=== PATIENT | male | born 1970 | race American Indian/Alaskan Native ===

== ENCOUNTER 2016-11-03 17:35 | Emergency (ER) | payer BC, MEDICAID ==
--- NOTE | 2016-11-03 18:15 | EDM.PDOC ---
ED HPI GENERAL MEDICAL PROBLEM - General Chief Complaint: Chest Pain Stated Complaint: CHEST PAIN Time Seen by Provider: 11/03/16 17:51 Source of Information: Reports: Patient History Limitations: Reports: No limitations - History of Present Illness INITIAL COMMENTS - FREE TEXT/NARRATIVE: 46-year-old male has been having chest pain for the past 3 days, seems to be positional and hurts with of breath but also worse with activity. Some shortness of breath with the pain. At times the pain is brief and others it lasts until he rests. No nausea or vomiting. No fever, cough, abdominal pain. The pain does radiate into the right shoulder at times. He has no previous cardiac history or evaluation but does have a stress test scheduled in one week. He was briefly evaluated by his primary physician 3 days ago for a general checkup when he mentioned the chest pain starting so the stress test was scheduled. Onset: other (3 days ago) Severity: mild Worsens with: Reports: Breathing, Other (Activity) Associated Symptoms: Reports: chest pain, shortness of breath. Denies: cough, diaphoresis, fever/chills, headaches, nausea/vomiting, weakness Chest Pain Score (Numeric/FACES): 7 - Related Data Allergies Allergy/AdvReac Type Severity Reaction Status Date / Time No Known Allergies Allergy Verified 11/03/16 17:47 Home Meds: Home Meds Acetaminophen [Tylenol Extra Strength] 500 mg PO TID PRN 10/31/16 [History] Hydrocodone/Acetaminophen [[place] 10-325 Tablet] 1 tab PO Q4H 10/31/16 [History] Ibuprofen [Motrin] 600 mg PO Q6H PRN 10/31/16 [History] Triamcinolone Acetonide [Triamcinolone Acetonide 0.1% Oint] 1 applic TOP BID [History] Zolpidem Tartrate [Ambien] 10 mg PO BEDTIME PRN 10/31/16 [History] traMADol [Ultram] 50 mg PO Q6H PRN 10/31/16 [History] Aspirin [Halfprin] 1 tab PO DAILY 11/03/16 [History] Past Medical History Gastrointestinal History: Reports: PUD Musculoskeletal History: Reports: Back pain, chronic, Fracture Social & Family History - Tobacco Use Smoking Status *Q: Heavy Tobacco Smoker Years of Tobacco use: 39 Packs/Tins Daily: 1 - Recreational Drug Use Recreational Drug Use: No ED ROS GENERAL - Review of Systems Review Of Systems: See Below Constitutional: Denies: fever, chills, malaise, decreased appetite HEENT: Reports: No symptoms Respiratory: Reports: Shortness of Breath, Pleuritic Chest Pain. Denies: Cough Cardiovascular: Reports: Chest pain. Denies: Lightheadedness, Palpitations GI/Abdominal: Denies: Abdominal pain, Nausea, Vomiting : Reports: no symptoms Musculoskeletal: Reports: back pain (Chronic and stable) Skin: Reports: no symptoms Neurological: Denies: Dizziness, Headache, Syncope Psychiatric: Reports: No symptoms ED EXAM, GENERAL - Physical Exam Exam: See Below Exam Limited By: No limitations General Appearance: alert, no apparent distress Eye Exam: bilateral eye: normal inspection Respiratory/Chest: no respiratory distress, lungs clear, other (Some increased pain with lateral compression of the left chest was felt, reproducing the same discomfort) Cardiovascular: regular rate, rhythm. No: extra beats GI/Abdominal: soft, non tender Extremities: normal inspection. No: pedal edema Neurological: alert, oriented Psychiatric: normal affect, normal mood Skin Exam: Warm, Dry EKG INTERPRETATION Rhythm: NSR Course - Vital Signs Last Recorded V/S: Last Vital Signs Temp 97.3 F 11/03/16 17:45 Pulse 74 11/03/16 18:47 Resp 18 11/03/16 18:47 BP 101/68 11/03/16 18:47 Pulse Ox 99 11/03/16 18:47 - Orders/Labs/Meds Orders: Active Orders 24 hr Category Date Time Status EKG Documentation Completion [RC] ASDIRECTED Care 11/03/16 18:03 Active Chest 2V [CR] Routine Exams 11/03/16 18:03 Taken EKG 12 Lead [EK] Routine Ther 11/03/16 18:03 Ordered Labs: Laboratory Tests 11/03/16 11/03/16 11/03/16 Range/Units 18:14 18:14 18:14 WBC 11.1 H (4.5-11.0) K/uL RBC 4.70 (4.30-5.90) M/uL Hgb 14.7 (12.0-15.0) g/dL Hct 43.0 (40.0-54.0) % MCV 92 (80-98) fL MCH 31 (27-31) pg MCHC 34 (32-36) % Plt Count 250 (150-400) K/uL Neut % (Auto) 56 (36-66) % Lymph % (Auto) 35 (24-44) % [place] % (Auto) 8 H (2-6) % Eos % (Auto) 1 L (2-4) % Baso % (Auto) 1 (0-1) % D-Dimer, Quantitative < 100 (0.0-400.0) ng/mL Sodium 141 (140-148) mmol/L Potassium 4.0 (3.6-5.2) mmol/L Chloride 105 (100-108) mmol/L Carbon Dioxide 28 (21-32) mmol/L Anion Gap 7.9 (5.0-14.0) mmol/L BUN 10 (7-18) mg/dL Creatinine 1.2 (0.8-1.3) mg/dL Est Cr Clr Drug Dosing 69.33 mL/min Estimated GFR (MDRD) > 60 (>60) Glucose 124 H (74-106) mg/dL Calcium 8.2 L (8.5-10.1) mg/dL Total Bilirubin 0.5 (0.2-1.0) mg/dL AST 12 L (15-37) U/L ALT 12 (12-78) U/L Alkaline Phosphatase 82 (46-116) U/L Troponin I < 0.017 (0.000-0.056) ng/mL Total Protein 6.6 (6.4-8.2) g/dL Albumin 3.2 L (3.4-5.0) g/dL Globulin 3.4 (2.3-3.5) g/dL Albumin/Globulin Ratio 0.9 L (1.2-2.2) Lipase 157 (73-393) U/L - Re-Assessments/Exams Free Text/Narrative Re-Assessment/Exam: 11/03/16 18:15 EKG was done which showed no acute changes. Patient was in a normal sinus rhythm. CBC, CMP, lipase, troponin and d-dimer were obtained. 11/03/16 18:55 Labs were all negative, troponin negative, d-dimer less than 100. Chest x-ray showed possible early emphysema but no acute findings. Discuss with the patient possibly setting up his stress test earlier but he wanted to take work this week if possible and keep the appointment as scheduled. Copies of all the labs and EKG were given to the patient in case he needs to recheck earlier. Departure - Departure Time of Disposition: 19:08 Disposition: Home, Self-Care 01 Condition: good Clinical Impression: Atypical chest pain, Pleurisy Instructions: Nonspecific Chest Pain, [id number] Referrals: PCP,None [Primary Care Provider] - Forms: ED Department Discharge Care Plan Goals: Continue your regular activity and medications. Stress test as scheduled, or recheck sooner if worsening or concerns. - My Orders Last 24 Hours: My Active Orders 11/03/16 18:03 EKG Documentation Completion [RC] ASDIRECTED Chest 2V [CR] Routine EKG 12 Lead [EK] Routine - Assessment/Plan Last 24 Hours: My Active Orders 11/03/16 18:03 EKG Documentation Completion [RC] ASDIRECTED Chest 2V [CR] Routine EKG 12 Lead [EK] Routine
[2016-11-03 18:49] VITALS: BP 101/68
--- NOTE | 2016-11-04 11:04 | CR ---
Chest 2V HISTORY: No Clinical Info FINDINGS: Heart size within normal limits. Pulmonary vasculature within normal limits. No evidence f or focal consolidation or cardiopulmonary process. Pulmonary hyperinflation. Emphysematous change. IMPRESSION: No radiographic evidence for acute cardiopulmonary process.
== END 2016-11-03 19:08 | disposition home or self-care (01) ==
LOC: JP.ED 17:35
DX: R07.89 Other chest pain (principal); R09.1 Pleurisy; F17.210 Nicotine dependence, cigarettes, uncomplicated; Z79.899 Other long term (current) drug therapy
CPT/HCPCS: 36415; 71020; 71020-26; 80053; 83690; 84484; 85025; 85379; 93005; 99285-25

== ENCOUNTER 2021-02-21 19:38 | Emergency (ER) | payer BC, MEDICAID ==
[2021-02-21 20:44] VITALS: BP 136/76; PULSE 87
--- NOTE | 2021-02-21 21:24 | EDM.PDOC ---
ED HPI GENERAL MEDICAL PROBLEM - General Chief Complaint: Skin Complaint Stated Complaint: ALL OVER BODY RASH Time Seen by Provider: 02/21/21 21:22 Source of Information: Reports: Patient History Limitations: Reports: No Limitations - History of Present Illness INITIAL COMMENTS - FREE TEXT/NARRATIVE: Shankar is a 50-year-old male presenting to the ED for evaluation of a rash that is on his distal upper and lower extremities that is been in place for about 2 weeks. Patient has tried Benadryl and [id number] topical ointments without improvement. The rash is quite itchy to the point that he is excoriated his left lower limb causing a secondary cellulitis. The rashes small erythematous papules that sometimes develop pustules when the patient tries to compress them. It seems to be predominantly on the distal extremities. There is no rash on the face, chest, back, abdomen, groin. It is not limited to sun exposed skin as he normally wears pants and it is on his unintended legs. Patient denies any fever, chills, cough or or throat, headache or body aches, nausea, vomiting, or diarrhea. bilateral legs Pain Score (Numeric/FACES): 8 - Related Data Allergies Allergy/AdvReac Type Severity Reaction Status Date / Time No Known Allergies Allergy Verified 02/21/21 21:19 Home Meds: Home Meds Acetaminophen [Tylenol Extra Strength] 500 mg PO TID PRN 10/31/16 [History] Ibuprofen [Motrin] 600 mg PO Q6H PRN 10/31/16 [History] Aspirin [Halfprin] 1 tab PO DAILY 11/03/16 [History] hydrOXYzine HCL [Atarax] 25 mg PO Q6H PRN #28 tab 02/21/21 [Rx] Past Medical History Gastrointestinal History: Reports: PUD Musculoskeletal History: Reports: Back Pain, Chronic, Fracture ED ROS GENERAL - Review of Systems Review Of Systems: See Below Constitutional: Reports: No Symptoms HEENT: Reports: No Symptoms Respiratory: Reports: No Symptoms Cardiovascular: Reports: No Symptoms Endocrine: Reports: No Symptoms GI/Abdominal: Reports: No Symptoms : Reports: No Symptoms Musculoskeletal: Reports: No Symptoms Skin: Reports: Pruritis, Rash (Pruritic papular rash on the distal upper and lower extremities.), Other (Creation of various regions on the left lower leg with erythema, edema, and tenderness now.) Neurological: Reports: No Symptoms Psychiatric: Reports: No Symptoms Hematologic/Lymphatic: Reports: No Symptoms Immunologic: Reports: No Symptoms ED EXAM, SKIN/RASH Exam: See Below Exam Limited By: No Limitations General Appearance: Alert, No Apparent Distress Eye Exam: Bilateral Eye: PERRL Throat/Mouth: Normal Inspection, Normal Oropharynx Head: Normocephalic Cardiovascular: Normal Peripheral Pulses Skin: Erythema (Erythema and edema of the left lower anterior leg with numerous excoriations from scratching. This is consistent with an acute cellulitis.), Rash (Red papular rash on the distal upper and lower extremities. This feels dry like sandpaper. It is quite pruritic.) Location, Skin: Upper Extremity, Right, Upper Extremity, Left, Lower Extremity, Right, Lower Extremity, Left Characteristics: Papular Associated features: Warmth (Warmth, tenderness, swelling, and induration in the left anterior lower leg where there are numerous excoriations. This is worrisome for an acute cellulitis.), Tenderness, Swelling, Induration Course - Vital Signs Last Recorded V/S: Last Vital Signs Temp 36.4 C 02/21/21 21:22 Pulse 87 02/21/21 21:22 Resp 16 02/21/21 21:22 BP 136/76 02/21/21 21:22 Pulse Ox 99 02/21/21 21:22 - Orders/Labs/Meds Labs: Laboratory Tests 02/21/21 02/21/21 Range/Units 21:51 21:51 WBC 11.0 (4.5-11.0) K/uL RBC 4.54 (4.30-5.90) M/uL Hgb 14.3 (12.0-15.0) g/dL Hct 42.8 (40.0-54.0) % MCV 94 (80-98) fL MCH 32 H (27-31) pg MCHC 33 (32-36) % Plt Count 295 (150-400) K/uL Neut % (Auto) 60.1 (36-66) % Lymph % (Auto) 25.4 (24-44) % [place] % (Auto) 9.3 H (2-6) % Eos % (Auto) 4.7 H (2-4) % Baso % (Auto) 0.5 (0-1) % C-Reactive Protein < 0.05 (0.0-0.3) mg/dL Meds: Medications Discontinued Medications Generic Name Dose Route Start Last Admin Trade Name Jamariq PRN Reason Stop Dose Admin Hydroxyzine HCl 25 mg 02/21/21 22:25 Hydroxyzine Hcl 25 Mg Tab PO 02/21/21 22:26 ONETIME ONE - Re-Assessments/Exams Free Text/Narrative Re-Assessment/Exam: 02/21/21 22:39 Labs were obtained showing a normal CBC and CRP. The rashes consistent with an atopic dermatitis or xeroderma. For this we will put the patient on a prednisone taper over 10 days. He is complaining of significant pruritus and has excoriated his left lower leg. We will put him on hydroxyzine 25 mg every 6 hours as needed for itching. Finally, he appears to have developed a secondary cellulitis in the left lower extremity due to the excoriation so we will put him on cephalexin 500 mg 3 times daily for 7 days to treat the cellulitis. At this time, the patient is suitable for discharge home in satisfactory condition. Indications to follow-up with his primary doc or return to the ED were discussed. Departure - Departure Time of Disposition: 22:22 Disposition: Home, Self-Care 01 Clinical Impression: Cellulitis Qualifiers: Site of cellulitis: extremity Site of cellulitis of extremity: lower extremity Laterality: left Qualified Code(s): L03.116 - Cellulitis of left lower limb Atopic dermatitis Qualifiers: Atopic dermatitis type: unspecified Qualified Code(s): L20.9 - Atopic dermatitis, unspecified - Discharge Information Prescriptions: hydrOXYzine HCL [Atarax] 25 mg PO Q6H PRN #28 tab PRN Reason: Itching Instructions: Cellulitis, Adult, Atopic Dermatitis Referrals: Ez Méndez MD [Primary Care Provider] - Forms: ED Department Discharge Care Plan Goals: Your left leg now has a skin infection due to the scratching. We are going to put you on cephalexin 500 mg 3 times a day for 7 days to treat this. This has been sent out to the [facility] machine. Your rash is due to a condition called atopic dermatitis which is an allergy type reaction which is why it itches. I am prescribing you hydroxyzine for the itching. This is not available in the [facility] machine so we will give you the first dose here and I have given you a printed prescription to fill in the morning for the remainder of the course. I also am going to put you on a 10-day steroid taper to help calm down the immune system causing the itch and rash. This is available in the [facility] machine for you to start tonight. Sepsis Event Note (ED) - Evaluation Sepsis Screening Result: No Definite Risk - Focused Exam Vital Signs: Vital Signs Temp Pulse Resp BP Pulse Ox 02/21/21 21:22 36.4 C 87 16 136/76 99 02/21/21 20:43 36.4 C 87 16 136/76 99 - Problem List & Annotations (1) Cellulitis SNOMED Code(s): 092482273 Code(s): L03.90 - CELLULITIS, UNSPECIFIED Status: Acute Priority: Low Current Visit: Yes Qualifiers: Site of cellulitis: extremity Site of cellulitis of extremity: lower extremity Laterality: left Qualified Code(s): L03.116 - Cellulitis of left lower limb (2) Atopic dermatitis SNOMED Code(s): 12558267 Code(s): L20.9 - ATOPIC DERMATITIS, UNSPECIFIED Status: Acute Priority: Low Current Visit: Yes Qualifiers: Atopic dermatitis type: unspecified Qualified Code(s): L20.9 - Atopic dermatitis, unspecified - Problem List Review Problem List Initiated/Reviewed/Updated: Yes
[2021-02-21] MEDS ORDERED: hydrOXYzine HCl 25 MG Tab PO ONE (22:25)
== END 2021-02-21 23:00 | disposition home or self-care (01) ==
LOC: JP.ED 19:38
DX: L03.116 Cellulitis of left lower limb (principal); L20.9 Atopic dermatitis, unspecified; Z79.82 Long term (current) use of aspirin
CPT/HCPCS: 36415; 85025; 86140; 99283; A9270

== ENCOUNTER 2021-05-18 13:19 | Emergency (ER) | payer MEDICAID ==
[2021-05-18 13:57] VITALS: BP 105/57; PULSE 122
[2021-05-18] MEDS ORDERED: Gabapentin 100 MG Cap PO ONE (14:40)
[2021-05-18] MEDS ORDERED: Doxycycline 100 MG Cap PO ONE (14:41)
--- NOTE | 2021-05-18 14:42 | EDM.PDOC ---
ED HPI GENERAL MEDICAL PROBLEM - General Chief Complaint: General Stated Complaint: NERVE PAIN Time Seen by Provider: 05/18/21 14:30 Source of Information: Reports: Patient, RN. Denies: Old Records History Limitations: Reports: No Limitations - History of Present Illness INITIAL COMMENTS - FREE TEXT/NARRATIVE: 50 yo male presents with "nerve pain" to his legs worse than normal. In the past he has been given [place] by his primary. The pain is worse in the L leg than in the R leg. He also mentions he has new onset of dysuria, his last few stools were dark, and several days ago he pulled a deer tick off his R calf area. No fever reported. Onset: Gradual Duration: Day(s):, Getting Worse Location: Reports: Lower Extremity, Left, Lower Extremity, Right Quality: Reports: Burning (legs) Severity: Moderate Improves with: Reports: None Worsens with: Reports: Other (time) Context: Reports: Other (See HPI) Associated Symptoms: Reports: No Other Symptoms Treatments [employer]: Reports: Other (see below) (none) - Related Data Allergies Allergy/AdvReac Type Severity Reaction Status Date / Time No Known Allergies Allergy Verified 05/18/21 14:31 Home Meds: Home Meds Gabapentin [Neurontin] 300 mg PO BID PRN #12 cap 05/18/21 [Rx] Past Medical History HEENT History: Reports: Impaired Vision, Other (See Below) Other HEENT History: reading glasses Cardiovascular History: Reports: Angina, Arrhythmia, High Cholesterol, Hypertension Respiratory History: Reports: COPD Gastrointestinal History: Reports: PUD Musculoskeletal History: Reports: Back Pain, Chronic, Fracture Psychiatric History: Reports: Anxiety, Depression, Suicide Attempt Dermatologic History: Reports: Urticaria - Infectious Disease History Infectious Disease History: Reports: Chicken Pox, Measles Social & Family History - Tobacco Use Tobacco Use Status *Q: Current Every Day Tobacco User Years of Tobacco use: 40 Packs/Tins Daily: 1 - Caffeine Use Caffeine Use: Reports: Coffee ED ROS GENERAL - Review of Systems Review Of Systems: See Below Constitutional: Reports: No Symptoms HEENT: Reports: No Symptoms Respiratory: Reports: No Symptoms Cardiovascular: Reports: Lightheadedness Endocrine: Reports: No Symptoms GI/Abdominal: Reports: No Symptoms : Reports: Dysuria Musculoskeletal: Reports: No Symptoms Skin: Reports: No Symptoms Neurological: Reports: Other (burning of both legs, L>R) ED EXAM, GENERAL - Physical Exam Exam: See Below Exam Limited By: No Limitations General Appearance: Alert, WD/WN, Mild Distress Eye Exam: Bilateral Eye: Normal Inspection Ears: Normal External Exam, Normal Canal, Hearing Grossly Normal Ear Exam: Bilateral Ear: Auricle Normal, Canal Normal Nose: Normal Inspection, No Blood Throat/Mouth: Normal Inspection, Normal Lips, Normal Oropharynx, Normal Voice, No Airway Compromise Head: Atraumatic, Normocephalic Neck: Normal Inspection Respiratory/Chest: No Respiratory Distress, Lungs Clear, Normal Breath Sounds, No Accessory Muscle Use Cardiovascular: Regular Rate, Rhythm, No Edema, Tachycardia GI/Abdominal: Soft, Non-Tender Back Exam: Normal Inspection Extremities: Normal Inspection, Normal Range of Motion, Non-Tender, No Pedal Edema Neurological: Alert, Oriented, CN II-XII Intact, Normal Cognition Psychiatric: Normal Affect, Normal Mood Skin Exam: Warm, Dry, Intact, Normal Color, No Rash, Ecchymosis (there is a single bruise on the R calf that could represent a prior tick attachment site. ) Course - Vital Signs Last Recorded V/S: Last Vital Signs Temp 36.8 C 05/18/21 14:15 Pulse 122 H 05/18/21 14:15 Resp 16 05/18/21 14:15 BP 105/57 L 05/18/21 14:15 Pulse Ox 98 05/18/21 14:15 Orthostatic Blood Pressure [ 89/56 Standing] Orthostatic Blood Pressure [ 90/56 Sitting] Orthostatic Blood Pressure [ 97/56 Supine] - Orders/Labs/Meds Labs: Laboratory Tests 05/18/21 05/18/21 05/18/21 Range/Units 15:25 15:25 15:59 WBC 2.3 L (4.5-11.0) K/uL RBC 5.01 (4.30-5.90) M/uL Hgb 15.3 H (12.0-15.0) g/dL Hct 45.2 (40.0-54.0) % MCV 90 (80-98) fL MCH 31 (27-31) pg MCHC 34 (32-36) % Plt Count 103 L (150-400) K/uL Sodium 133 L (140-148) mmol/L Potassium 4.2 (3.6-5.2) mmol/L Chloride 96 L (100-108) mmol/L Carbon Dioxide 26 (21-32) mmol/L Anion Gap 15.2 H (5.0-14.0) mmol/L BUN 12 (7-18) mg/dL Creatinine 1.3 (0.8-1.3) mg/dL Est Cr Clr Drug Dosing 64.66 mL/min Estimated GFR (MDRD) 58 L (>60) Glucose 102 (74-106) mg/dL Calcium 8.6 (8.5-10.1) mg/dL Urine Color Yellow (YELLOW) Urine Appearance Slightly cloudy A (CLEAR) Urine pH 5.5 (5.0-8.0) Ur Specific [place] >= 1.030 (1.008-1.030) Urine Protein 100 H (NEGATIVE) mg/dL Urine Glucose (UA) Negative (NEGATIVE) mg/dL Urine Ketones Negative (NEGATIVE) mg/dL Urine Occult Blood Trace-lysed H (NEGATIVE) Urine Nitrite Negative (NEGATIVE) Urine Bilirubin Negative (NEGATIVE) Urine Urobilinogen 0.2 (0.2-1.0) EU/dL Ur Leukocyte Esterase Negative (NEGATIVE) Urine RBC 0-5 (0-5) Urine WBC 0-5 (0-5) Ur Epithelial Cells Few Amorphous Sediment Many Urine Bacteria Many Urine Mucus Few Urine Other Urine Opiates Screen (NEGATIVE) Ur Oxycodone Screen (NEGATIVE) Urine Methadone Screen (NEGATIVE) Ur Propoxyphene Screen (NEGATIVE) Ur Barbiturates Screen (NEGATIVE) Ur Tricyclics Screen (NEGATIVE) Ur Phencyclidine Scrn (NEGATIVE) Ur Amphetamine Screen (NEGATIVE) U Methamphetamines Scrn (NEGATIVE) Urine MDMA Screen (NEGATIVE) U Benzodiazepines Scrn (NEGATIVE) U Cocaine Metab Screen (NEGATIVE) U Marijuana (THC) Screen (NEGATIVE) 05/18/21 Range/Units 15:59 WBC (4.5-11.0) K/uL RBC (4.30-5.90) M/uL Hgb (12.0-15.0) g/dL Hct (40.0-54.0) % MCV (80-98) fL MCH (27-31) pg MCHC (32-36) % Plt Count (150-400) K/uL Sodium (140-148) mmol/L Potassium (3.6-5.2) mmol/L Chloride (100-108) mmol/L Carbon Dioxide (21-32) mmol/L Anion Gap (5.0-14.0) mmol/L BUN (7-18) mg/dL Creatinine (0.8-1.3) mg/dL Est Cr Clr Drug Dosing mL/min Estimated GFR (MDRD) (>60) Glucose (74-106) mg/dL Calcium (8.5-10.1) mg/dL Urine Color (YELLOW) Urine Appearance (CLEAR) Urine pH (5.0-8.0) Ur Specific [place] (1.008-1.030) Urine Protein (NEGATIVE) mg/dL Urine Glucose (UA) (NEGATIVE) mg/dL Urine Ketones (NEGATIVE) mg/dL Urine Occult Blood (NEGATIVE) Urine Nitrite (NEGATIVE) Urine Bilirubin (NEGATIVE) Urine Urobilinogen (0.2-1.0) EU/dL Ur Leukocyte Esterase (NEGATIVE) Urine RBC (0-5) Urine WBC (0-5) Ur Epithelial Cells Amorphous Sediment Urine Bacteria Urine Mucus Urine Other Urine Opiates Screen Negative (NEGATIVE) Ur Oxycodone Screen Negative (NEGATIVE) Urine Methadone Screen Negative (NEGATIVE) Ur Propoxyphene Screen Negative (NEGATIVE) Ur Barbiturates Screen Negative (NEGATIVE) Ur Tricyclics Screen Presumptive positive H (NEGATIVE) Ur Phencyclidine Scrn Negative (NEGATIVE) Ur Amphetamine Screen Presumptive positive H (NEGATIVE) U Methamphetamines Scrn Presumptive positive H (NEGATIVE) Urine MDMA Screen Presumptive positive H (NEGATIVE) U Benzodiazepines Scrn Negative (NEGATIVE) U Cocaine Metab Screen Negative (NEGATIVE) U Marijuana (THC) Screen Negative (NEGATIVE) Meds: Medications Discontinued Medications Generic Name Dose Route Start Last Admin Trade Name Freq PRN Reason Stop Dose Admin Doxycycline Hyclate 200 mg 05/18/21 14:41 05/18/21 15:09 Doxycycline 100 Mg Cap PO 05/18/21 14:42 200 mg ONETIME ONE Administration Gabapentin 200 mg 05/18/21 14:40 05/18/21 15:09 Gabapentin 100 Mg Cap PO 05/18/21 14:41 200 mg ONETIME ONE Administration Departure - Departure Time of Disposition: 16:20 Disposition: Home, Self-Care 01 Condition: Fair Clinical Impression: Radicular pain of both lower extremities, Methamphetamine use, Mild dehydration - Discharge Information *PRESCRIPTION DRUG MONITORING PROGRAM REVIEWED*: No *COPY OF PRESCRIPTION DRUG MONITORING REPORT IN PATIENT JULIO: No Prescriptions: Gabapentin [Neurontin] 300 mg PO BID PRN #12 cap PRN Reason: Pain Instructions: Radicular Pain Referrals: Ez Méndez MD [Primary Care Provider] - Forms: ED Department Discharge Additional Instructions: Use the gabapentin as directed for your nerve pain. See your doctor sveta for follow up. Drink enough fluids, Sport drinks, so that your urine is light yellow. Sepsis Event Note (ED) - Evaluation Sepsis Screening Result: No Definite Risk - Focused Exam Vital Signs: Vital Signs Temp Pulse Resp BP Pulse Ox 05/18/21 14:15 36.8 C 122 H 16 105/57 L 98 05/18/21 13:55 36.8 C 122 H 16 105/57 L 98
== END 2021-05-18 16:30 | disposition home or self-care (01) ==
LOC: JP.ED 13:19
DX: M54.10 Radiculopathy, site unspecified (principal); E86.0 Dehydration; F15.90 Other stimulant use, unspecified, uncomplicated; I10 Essential (primary) hypertension; J44.9 Chronic obstructive pulmonary disease, unspecified; Z72.0 Tobacco use
CPT/HCPCS: 36415; 80048; 80305; 81001; 82272; 85027; 99283; A9270